=== PATIENT | male | born 1985 | race Caucasian/White ===

== ENCOUNTER 2023-04-30 13:44 | Outpatient (REF) | payer OTHER, SELFPAY ==
[2023-04-30 21:24] LABS: Abs Immature Grans 0.03 10^3/uL (0.0-0.06); Absolute Basophil Count 0.03 10^3/uL (0.0-0.2); Absolute Lymphocyte Count 1.15 10^3/uL (1.2-3.4); Absolute Monocyte Count 0.82 10^3/uL (0.1-0.8); Absolute Neutrophil Count 6.58 10^3/uL (1.2-6.7); Basophils % 0.3; Eosinophils % 1.1; HCT 46.8 % (40.0-50.0); HGB 16.2 g/dL (13.5-17.5); Immature Grans % 0.3; Lymphocytes % 13.2; MCH 31.8 pg (27.0-33.0); MCHC 34.6 % (32.0-36.0); MCV 92 fL (80-95); MPV 11.2 fL (8.0-11.0); Monocytes % 9.4; Neutrophils % 75.7; Platelet Count 162 10^3/uL (130-400); RDW 11.6 % (11.8-14.1); RDW-SD 38.4 fL; WBC 8.71 10^3/uL (4.4-10.8)
[2023-04-30 21:30] LABS: Uric Acid 7.2 mg/dL (3.5-7.2)
== END 2023-04-30 13:45 | disposition home or self-care (01) ==
LOC: LBN 13:44
PROVIDERS: Visit Provider Physician Assistant
DX: M79.675 Pain in left toe(s) (principal)
CPT/HCPCS: 84550; 85025

== ENCOUNTER → 2023-04-30 13:54 | Outpatient (CLI) | payer OTHER, SELFPAY ==
--- NOTE | 2023-04-30 13:45 | DI.RAD_ITS ---
Exam(s) XR TOE LT GREAT EXAM: XR TOE LT GREAT CLINICAL HISTORY: left great toe pain,M79.676. TECHNIQUE: 2D digital imaging was performed. Three views. COMPARISON: No exams were available for comparison FINDINGS: BONES: Small fracture fragment at the lateral base of the distal phalanx which does not involve the articular surface. Minimally displaced. No additional fractures. No bony destructive lesion is see n. JOINTS: No dislocation present. Joint spaces are maintained. SOFT TISSUE: Swelling lateral to interphalangeal joint. IMPRESSION: Small fracture fragment at the base of the distal phalanx of the great toe. DATA REPOSITORY: RADIATION DOSE DELIVERED:
== END ==
PROVIDERS: Visit Provider Physician Assistant
DX: M79.675 Pain in left toe(s) (principal)
CPT/HCPCS: 73660

== ENCOUNTER → 2025-01-08 14:55 | Outpatient (CLI) | payer OTHER, SELFPAY ==
--- NOTE | 2025-01-08 13:45 | DI.RAD_ITS ---
Exam(s) XR SHOULDER LT COMPLETE 2+V XR SCAPULA LT EXAM: XR SHOULDER LT COMPLETE 2+V and XR scapula LT CLINICAL HISTORY: injury left shoulder pain, M25.512. TECHNIQUE: 2D digital imaging was performed of the left scapula and shoulder. Six images were obtained. AP, Grashey, Y-view and axillary views were obtained. COMPARISON: There are no priors for comparison. FINDINGS: BONES: There is a displaced oblique fracture through the inferior aspect of the scapula. It is displaced 1 bodies width. No bony destructive lesion is seen. JOINTS: No dislocation present. The acromioclavicular and glenohumeral joints are well maintained. SOFT TISSUE: Normal. IMPRESSION: Displaced oblique fracture through the inferior scapula. Unexpected findings DATA REPOSITORY: RADIATION DOSE DELIVERED:
== END ==
LOC: DI 14:59
PROVIDERS: PCP Family Medicine; Visit Provider Physician Assistant
DX: M25.512 Pain in left shoulder (principal); S42.112A Displaced fracture of body of scapula, left shoulder, initial encounter for closed fracture
CPT/HCPCS: 73010; 73030

== ENCOUNTER 2025-01-20 11:28 | Outpatient (CLI) | payer OTHER, SELFPAY ==
--- NOTE | 2025-01-20 09:00 | DI.RAD_ITS ---
Exam(s) XR SCAPULA LT EXAM: XR SCAPULA LT CLINICAL HISTORY: F/U LEFT SCAPULA FX. TECHNIQUE: 2D digital imaging was performed. Three views were obtained. COMPARISON: CR XR SCAPULA LT from 01/08/2025 FINDINGS: BONES: There has been no significant change in alignment of the fracture involving the inferior left scapula. No bony destructive lesion is seen. JOINTS: No dislocation present. SOFT TISSUE: Normal. IMPRESSION: Stable scapular fracture. DATA REPOSITORY: RADIATION DOSE DELIVERED:
== END 2025-01-20 11:29 | disposition home or self-care (01) ==
LOC: DIORS 11:28
PROVIDERS: PCP Family Medicine; Visit Provider Student in an Organized Health Care Education/Training Program
DX: S49.92XA Unspecified injury of left shoulder and upper arm, initial encounter (principal)
CPT/HCPCS: 73010